=== PATIENT | female | born 1980 | race Caucasian/White ===

== ENCOUNTER 2023-11-17 15:50 | Outpatient (CLI) | payer BC | END 2023-11-17 23:59 | disposition home or self-care (01) | LOC: MRI 15:50 | PROVIDERS: ATTEND Podiatrist Foot & Ankle Surgery | DX: S93.621A Sprain of tarsometatarsal ligament of right foot, initial encounter (principal); M79.671 Pain in right foot; M20.11 Hallux valgus (acquired), right foot; M21.961 Unspecified acquired deformity of right lower leg; M25.474 Effusion, right foot; M67.471 Ganglion, right ankle and foot; M19.071 Primary osteoarthritis, right ankle and foot; X58.XXXA Exposure to other specified factors, initial encounter; Y93.89 Activity, other specified; Y92.89 Other specified places as the place of occurrence of the external cause; Y99.8 Other external cause status | CPT/HCPCS: 73718 ==

== ENCOUNTER 2024-02-05 12:55 | Outpatient (CLI) | payer BC | END 2024-02-05 23:59 | disposition home or self-care (01) | LOC: MRI 12:55 | PROVIDERS: ATTEND Pediatrics Sports Medicine | DX: M51.16 Intervertebral disc disorders with radiculopathy, lumbar region (principal); M47.817 Spondylosis without myelopathy or radiculopathy, lumbosacral region; M48.07 Spinal stenosis, lumbosacral region; M51.27 Other intervertebral disc displacement, lumbosacral region; M79.671 Pain in right foot; M25.551 Pain in right hip; M54.2 Cervicalgia; M79.10 Myalgia, unspecified site | CPT/HCPCS: 72148 ==

== ENCOUNTER 2024-02-14 12:45 | Outpatient (CLI) | payer BC | END 2024-02-14 23:59 | disposition home or self-care (01) | LOC: MRI 12:45 | PROVIDERS: ATTEND Physician Assistant Surgical | DX: M51.34 Other intervertebral disc degeneration, thoracic region (principal); M99.02 Segmental and somatic dysfunction of thoracic region; D18.09 Hemangioma of other sites | CPT/HCPCS: 72146 ==